=== PATIENT | male | born 1955 | race Caucasian/White ===

== ENCOUNTER 2023-07-08 20:29 | Emergency (ER) | payer BC ==
[2023-07-08 20:33] LABS: Glucose,Whole Blood 353 mg/dL (70-110)
[2023-07-08 20:34] VITALS: RESP 18; TEMP 98.2
[2023-07-08] MEDS ORDERED: SODIUM CHLORIDE 0.9% 1,000 ML IV ONE (21:23)
[2023-07-08] MEDS ORDERED: INSULIN REGULAR 100 UNIT/ML VIAL (IM/SQ) SQ ONE (21:23)
[2023-07-08 21:38] LABS: Glucose,Whole Blood 280 mg/dL (70-110)
[2023-07-08 21:53] LABS: Basophils % (A) 0 %; Eosinophils # (A) 0.2 k/uL (0-0.7); Eosinophils % (A) 3 %; HCT 42.1 % (39.0-53.0); HGB 13.8 gm/dL (13.0-17.5); Lymphocytes # (A) 1.2 k/uL (1.0-4.8); Lymphocytes % (A) 19 %; MCH 31.6 pg (25.0-35.0); MCHC 32.8 g/dL (31.0-37.0); MCV 96.3 fL (80.0-100.0); Mean Platelet Volume 7.7; Monocytes # (A) 0.4 k/uL (0-1.0); Monocytes % (A) 7 %; Neutrophils # (A) 4.5 k/uL (1.3-7.7); Neutrophils % (A) 69 %; Platelet Count 127 k/uL (150-450); RBC 4.37 m/uL (4.30-5.90); RDW 14.2 % (11.5-15.5); WBC 6.5 k/uL (3.8-10.6)
[2023-07-08 21:57] LABS: ALT 47 U/L (4-49); AST 45 U/L (17-59); African American GFR (CKD) >90 (>60 ml/min/1.73 sqM); Albumin 3.8 g/dL (3.5-5.0); Alkaline Phosphatase 73 U/L (38-126); Anion Gap 10 mmol/L; Blood Urea Nitrogen 29 mg/dL (9-20); Carbon Dioxide 21 mmol/L (22-30); Chloride 103 mmol/L (98-107); Glucose 308 mg/dL (74-99); Lipase 53 U/L (23-300); Non-African American GFR(CKD) 79 (>60 ml/min/1.73 sqM); Potassium 4.6 mmol/L (3.5-5.1); Sodium 134 mmol/L (137-145); Total Bilirubin 0.7 mg/dL (0.2-1.3); Total Protein 6.9 g/dL (6.3-8.2)
[2023-07-08 22:51] LABS: Glucose,Whole Blood 184 mg/dL (70-110)
--- NOTE | 2023-07-08 22:54 | ED ---
General Adult HPI - General Chief complaint: Nausea/Vomiting/Diarrhea Stated complaint: Sugar high Time Seen by Provider: 07/08/23 20:39 Source: patient Mode of arrival: wheelchair Limitations: no limitations - History of Present Illness Initial comments: Renard is a pleasant 68-year-old male with history of type 2 diabetes on long- acting insulin. Patient saw his field marketing team leader earlier this week who advised she should increase his long-acting insulin from 20-26 units but begin taking it in the evening instead of the morning. He still on oral metformin. Patient reports that he take his oral metformin yesterday, when he woke up this morning he felt somewhat nauseated so he chose not to take it. He continued feels somewhat nauseated throughout the day but today was his daughter's wedding so he attended that. He did have some water and Gatorade 0 in the morning, he was able to eat dinner however he noted throughout the day he continued to feel nauseated and just unwell. He noted that his sugars spiked to greater than 400 and he decided to come to the ER for evaluation. At this time patient's last diabetes medications were taken yesterday he had insulin in the morning and metformin in the morning and evening. - Related Data Home Medications Medication Instructions Recorded Confirmed Ascorbic Acid [Vitamin C] 1,000 mg PO DAILY 07/08/23 07/08/23 Cholecalciferol [Vitamin D3 (25 50 mcg PO DAILY 07/08/23 07/08/23 Mcg = 1000 Iu)] Clopidogrel [Plavix] 75 mg PO DAILY 07/08/23 07/08/23 Dapagliflozin Propanediol [Farxiga] 10 mg PO DAILY 07/08/23 07/08/23 Dulaglutide [Trulicity] 1.5 mg SQ DIRECTED 07/08/23 07/08/23 Insulin Glargine,Hum.rec.anlog 26 unit SQ DIRECTED 07/08/23 07/08/23 [Basaglar Kwikpen U-100] Levothyroxine Sodium [Synthroid] 50 mcg PO DAILY 07/08/23 07/08/23 Magnesium Oxide [Mag-Ox] 400 mg PO DAILY 07/08/23 07/08/23 Multivit-Mins/Iron/Folic/Lycop 1 tab PO DAILY 07/08/23 07/08/23 [Centrum Men's Tablet] lisinopriL [Zestril] 5 mg PO DAILY 07/08/23 07/08/23 metFORMIN HCL 1,000 mg PO BID 07/08/23 07/08/23 Allergies Allergy/AdvReac Type Severity Reaction Status Date / Time No Known Allergies Allergy Verified 07/08/23 21:17 Review of Systems ROS Statement: Those systems with pertinent positive or pertinent negative responses have been documented in the HPI. ROS Other: All systems not noted in ROS Statement are negative. Past Medical History Past Medical History: CVA/TIA, Diabetes Mellitus History of Any Multi-Drug Resistant Organisms: None Reported Past Surgical History: No Surgical Hx Reported Past Psychological History: No Psychological Hx Reported Smoking Status: Never smoker Past Alcohol Use History: None Reported Past Drug Use History: None Reported General Exam - General Exam Comments Initial Comments: Physical Exam GENERAL: Patient is well-developed and well-nourished HENT: Normocephalic, Atraumatic. EYES: PERRL, EOMI PULMONARY: Unlabored respirations. CARDIOVASCULAR: RRR Warm and well perfused extremities ABDOMEN: Non-tender SKIN: No rashes or bruising : Deferred NEUROLOGIC: Alert and oriented Normal speech Normal gait MUSCULOSKELETAL: Moving all extremities with no apparent injury PSYCHIATRIC: No SI/HI Limitations: no limitations Course Vital Signs 07/08/23 20:31 Temperature 98.2 F Pulse Rate 88 Respiratory 18 Rate Blood Pressure 164/85 O2 Sat by Pulse 98 Oximetry Medical Decision Making - Medical Decision Making Was pt. sent in by a medical professional or institution (, PA, DIRECTOR [employer], urgent care, hospital, or [facility]...) When possible be specific @ -No Did you speak to anyone other than the patient for history (EMS, parent, family, police, friend...)? What history was obtained from this source @ -Family at bedside Did you review nursing and triage notes (agree or disagree)? Why? @ -I reviewed and agree with nursing and triage notes Were old charts reviewed (outside hosp., previous admission, EMS record, old EKG, old radiological studies, urgent care reports/EKG's, [facility] records)? Report findings @ -No old charts were reviewed Differential Diagnosis (chest pain, altered mental status, abdominal pain women, abdominal pain men, vaginal bleeding, weakness, fever, dyspnea, syncope, headache, dizziness, GI bleed, back pain, seizure, CVA, palpatations, mental health, musculoskeletal)? @ -not applicable EKG interpreted by me (3pts min.). @ -As above X-rays interpreted by me (1pt min.). @ -None done CT interpreted by me (1pt min.). @ -None done U/S interpreted by me (1pt. min.). @ -None done What testing was considered but not performed or refused? (CT, X-rays, U/S, labs)? Why? @ -None What meds were considered but not given or refused? Why? @ -None Did you discuss the management of the patient with other professionals (professionals i.e. Dr., PA, DIRECTOR [employer], lab, RT, psych nurse, social services technician, financial services professional, teacher, global chief creative officer, case filler)? Give summary @ -No Was smoking cessation discussed for >3mins.? @ -No Was critical care preformed (if so, how long)? @ -No Were there social determinants of health that impacted care today? How? (Homelessness, low income, unemployed, alcoholism, drug addiction, transportation, low edu. Level, literacy, decrease access to med. care, long term, rehab)? @ -No Was there de-escalation of care discussed even if they declined (Discuss DNR or withdrawal of care, Hospice)? DNR status @ -No What co-morbidities impacted this encounter? (DM, HTN, Smoking, COPD, CAD, Cancer, CVA, ARF, Chemo, Hep., AIDS, mental health diagnosis, sleep apnea, morbid obesity)? @ -Diabetes Was patient admitted / discharged? Hospital course, mention meds given and route, prescriptions, significant lab abnormalities, going to OR and other pertinent info. @ -Discharge Type II diabetic has not taken his medications he's hyperglycemic. He was treated with IV fluids and insulin. Glucose was improving. Patient is feeling much better after being rehydrated uncomfortable plan for discharge home. Undiagnosed new problem with uncertain prognosis? @ -No Drug Therapy requiring intensive monitoring for toxicity (Heparin, Nitro, Insulin, Cardizem)? @ -No Were any procedures done? @ -No Diagnosis/symptom? @ -Hyperglycemia secondary to type 2 diabetes medication noncompliance Acute, or Chronic, or Acute on Chronic? @ -default Uncomplicated (without systemic symptoms) or Complicated (systemic symptoms)? @ -default Side effects of treatment? @ -No Exacerbation, Progression, or Severe Exacerbation? @ -No Poses a threat to life or bodily function? How? (Chest pain, USA, IA, pneumonia, PE, COPD, DKA, ARF, appy, cholecystitis, CVA, Diverticulitis, Homicidal, Suicidal, threat to staff... and all critical care pts) @ -No - Lab Data Result diagrams: 07/08/23 21:23 07/08/23 21:23 Lab Results 07/08/23 07/08/23 07/08/23 Range/Units 20:31 21:23 21:23 WBC 6.5 (3.8-10.6) k/uL RBC 4.37 (4.30-5.90) m/uL Hgb 13.8 (13.0-17.5) gm/dL Hct 42.1 (39.0-53.0) % MCV 96.3 (80.0-100.0) fL MCH 31.6 (25.0-35.0) pg MCHC 32.8 (31.0-37.0) g/dL RDW 14.2 (11.5-15.5) % Plt Count 127 L (150-450) k/uL MPV 7.7 Neutrophils % 69 % Lymphocytes % 19 % Monocytes % 7 % Eosinophils % 3 % Basophils % 0 % Neutrophils # 4.5 (1.3-7.7) k/uL Lymphocytes # 1.2 (1.0-4.8) k/uL Monocytes # 0.4 (0-1.0) k/uL Eosinophils # 0.2 (0-0.7) k/uL Basophils # 0.0 (0-0.2) k/uL Sodium 134 L (137-145) mmol/L Potassium 4.6 (3.5-5.1) mmol/L Chloride 103 (98-107) mmol/L Carbon Dioxide 21 L (22-30) mmol/L Anion Gap 10 mmol/L BUN 29 H (9-20) mg/dL Creatinine 0.99 (0.66-1.25) mg/dL Est GFR (CKD-EPI)AfAm >90 (>60 ml/min/1.73 sqM) Est GFR (CKD-EPI)NonAf 79 (>60 ml/min/1.73 sqM) Glucose 308 H (74-99) mg/dL POC Glucose (mg/dL) 353 H (70-110) mg/dL POC Glu Microphone Operator ID Obie Holly Calcium 9.0 (8.4-10.2) mg/dL Total Bilirubin 0.7 (0.2-1.3) mg/dL AST 45 (17-59) U/L ALT 47 (4-49) U/L Alkaline Phosphatase 73 (38-126) U/L Total Protein 6.9 (6.3-8.2) g/dL Albumin 3.8 (3.5-5.0) g/dL Lipase 53 (23-300) U/L 07/08/23 07/08/23 Range/Units 21:36 22:49 WBC (3.8-10.6) k/uL RBC (4.30-5.90) m/uL Hgb (13.0-17.5) gm/dL Hct (39.0-53.0) % MCV (80.0-100.0) fL MCH (25.0-35.0) pg MCHC (31.0-37.0) g/dL RDW (11.5-15.5) % Plt Count (150-450) k/uL MPV Neutrophils % % Lymphocytes % % Monocytes % % Eosinophils % % Basophils % % Neutrophils # (1.3-7.7) k/uL Lymphocytes # (1.0-4.8) k/uL Monocytes # (0-1.0) k/uL Eosinophils # (0-0.7) k/uL Basophils # (0-0.2) k/uL Sodium (137-145) mmol/L Potassium (3.5-5.1) mmol/L Chloride (98-107) mmol/L Carbon Dioxide (22-30) mmol/L Anion Gap mmol/L BUN (9-20) mg/dL Creatinine (0.66-1.25) mg/dL Est GFR (CKD-EPI)AfAm (>60 ml/min/1.73 sqM) Est GFR (CKD-EPI)NonAf (>60 ml/min/1.73 sqM) Glucose (74-99) mg/dL POC Glucose (mg/dL) 280 H 184 H (70-110) mg/dL POC Glu Microphone Operator ID Janelle Shepard Taylor Calcium (8.4-10.2) mg/dL Total Bilirubin (0.2-1.3) mg/dL AST (17-59) U/L ALT (4-49) U/L Alkaline Phosphatase (38-126) U/L Total Protein (6.3-8.2) g/dL Albumin (3.5-5.0) g/dL Lipase (23-300) U/L Disposition Clinical Impression: Hyperglycemia Disposition: HOME SELF-CARE Condition: Stable Instructions (If sedation given, give patient instructions): Diabetic Hyperglycemia (ED) Is patient prescribed a controlled substance at d/c from ED?: No Referrals: Fabian Evans DO [Primary Care Provider] - 1-2 days
[2023-07-08 23:33] VITALS: BP 151/80; PULSE 73
== END 2023-07-08 23:33 | disposition home or self-care (01) ==
LOC: EC 20:29
DX: E11.65 Type 2 diabetes mellitus with hyperglycemia (principal); Z86.73 Personal history of transient ischemic attack (TIA), and cerebral infarction without residual deficits; Z79.84 Long term (current) use of oral hypoglycemic drugs; Z79.02 Long term (current) use of antithrombotics/antiplatelets; Z79.4 Long term (current) use of insulin
CPT/HCPCS: 36415; 80053; 83690; 85025; 96360; 99284